=== PATIENT | male | born 1965 | race American Indian/Alaskan Native ===

== ENCOUNTER 2016-09-28 08:41 | Emergency (ER) | payer BC ==
[2016-09-28 08:54] VITALS: BMI 28.8
[2016-09-28] MEDS ORDERED: Naproxen 550 mg Tab PO STA (08:54)
[2016-09-28 08:58] VITALS: TEMP 97.9; O2SAT 97
--- NOTE | 2016-09-28 09:04 | ED PDOC ---
Arrival/HPI - General Chief Complaint: Lower Extremity Problem/Injury Time Seen by Provider: 09/28/16 08:49 Historian: Patient - History of Present Illness Narrative History of Present Illness (Text): 09/28/16 09:01 Dipika Will, a 51 year old male presents to the emergency department complaining of bilateral leg pain since a week ago. Patient notes that he "pulled his leg" a week ago. pt reports he injured both his left and right leg. Patient reports ecchymosis of right leg developed today. Patient reports he had no falls. Patient denies any fevers, headache or any other complaints at this time. Time/Duration: 1 week Symptom Onset: Sudden Symptom Course: Unchanged Activities at Onset: Rest Modifying Factors (Text): none Context: Home Associated Symptoms (Text): none Past Medical History - Provider Review Nursing Documentation Reviewed: Yes - Infectious Disease Hx of Infectious Diseases: None - Tetanus Immunization Tetanus Immunization: Unknown - Psychiatric Hx Substance Use: No - Surgical History Hx Orthopedic Surgery: Yes (KNEE) - Anesthesia Hx Anesthesia: No Hx Anesthesia Reactions: No Hx Malignant Hyperthermia: No - Suicidal Assessment Feels Threatened In Home Enviroment: No Family/Social History - Physician Review Nursing Documentation Reviewed: Yes Family/Social History: No Known Family HX Smoking Status: Unknown If Ever Smoked Hx Alcohol Use: Yes Hx Substance Use: No Hx Substance Use Treatment: No Allergies/Home Meds Allergies/Adverse Reactions: Allergies No Known Allergies Allergy (Verified 09/28/13 11:19) Review of Systems - Physician Review All systems were reviewed & negative as marked: Yes - Review of Systems Constitutional: absent: Fevers Musculoskeletal: Other (bilateral leg pain) Neurological: absent: Headache Physical Exam Vital Signs Reviewed: Yes Vital Signs Temp Pulse Resp BP Pulse Ox 09/28/16 11:11 65 18 143/79 97 09/28/16 08:41 97.9 F 60 17 145/87 97 Temperature: Afebrile Blood Pressure: Normal Pulse: Regular Respiratory Rate: Normal Appearance: Positive for: Well-Appearing, Non-Toxic, Comfortable Pain Distress: None Mental Status: Positive for: Alert and Oriented X 3 - Systems Exam Head: Present: Atraumatic, Normocephalic Pupils: Present: PERRL Extroacular Muscles: Present: EOMI Conjunctiva: Present: Normal Mouth: Present: Moist Mucous Membranes Neck: Present: Normal Range of Motion Respiratory/Chest: Present: Clear to Auscultation, Good Air Exchange. No: Respiratory Distress, Accessory Muscle Use Cardiovascular: Present: Regular Rate and Rhythm, Normal S1, S2. No: Murmurs Abdomen: Present: Normal Bowel Sounds. No: Tenderness, Distention, Peritoneal Signs Upper Extremity: Present: Normal Inspection. No: Cyanosis, Edema Lower Extremity: Present: Other (ecchymosis to right upper leg; minimum tenderness) Neurological: Present: GCS=15, CN II-XII Intact, Speech Normal Skin: Present: Warm, Dry, Normal Color. No: Rashes Psychiatric: Present: Alert, Oriented x 3, Normal Insight, Normal Concentration Medical Decision Making ED Course and Treatment: 09/28/16 09:09 Impression: 51 year old male with bilateral leg pain. Differential Diagnosis include but are not limited to: Plan: -- US lower extremity vein bilat -- Anaprox -- Reassess and disposition Prior Visits: Notes and results from previous visits were reviewed. Patient reported to the emergency department on 05/01/16 for evaluation of generalized body aches. Progress Notes: 09/28/16 10:16 09/28/16 10:17 tech reports dvt study neg. 09/28/16 13:24 pt ambulating around er in nad, xr, dvt study neg, advise outpt f/u with ortho - RAD Interpretation Radiology Orders: 09/28/16 08:53 DUPLEX LOWER EXTRM VEIN BILAT [US] Stat 09/28/16 09:01 Femur Right [FEMUR MIN 2 VIEWS RT] [RAD] Stat HIP MIN 4V W/ PELVIS RT [RAD] Stat - Medication Orders Current Medication Orders: Discontinued Medications Naproxen (Anaprox Ds) 550 mg PO STAT STA Stop: 09/28/16 08:55 Last Admin: 09/28/16 09:06 Dose: 550 MG - Scribe Statement The provider has reviewed the documentation as recorded by the Laraibdiamond Nielson All medical record entries made by the Laraibdiamond were at my direction and personally dictated by me. I have reviewed the chart and agree that the record accurately reflects my personal performance of the history, physical exam, medical decision making, and the department course for this patient. I have also personally directed, reviewed, and agree with the discharge instructions and disposition. Disposition/Present on Arrival - Present on Arrival Any Indicators Present on Arrival: No History of DVT/PE: No History of Uncontrolled Diabetes: No Urinary Catheter: No History of Decub. Ulcer: No History Surgical Site Infection Following: None - Disposition Have Diagnosis and Disposition been Completed?: Yes Diagnosis: Traumatic ecchymosis of lower leg Disposition: HOME/ ROUTINE Disposition Time: 10:20 Condition: STABLE Discharge Instructions (ExitCare): Contusion in Adults (ED), Leg Sprain (ED) Additional Instructions: please follow up with specialist. return to er with worsening symptoms or concerns. Prescriptions: Naproxen 500 mg PO BID PRN #14 tab PRN Reason: Pain, Mild (1-3) Referrals: PCP,NO [Primary Care Provider] - Follow up with primary Reg Malloy DO [Staff Provider] - Follow up with primary
[2016-09-28 11:11] VITALS: BP 143/79; PULSE 65; RESP 18
--- NOTE | 2016-09-28 12:06 | RAD ---
PROCEDURE: Right femur dated 09/28/2016. HISTORY: trauma COMPARISON: Correlation made with concurrent radiographs right hip. TECHNIQUE: AP and lateral views of the right femur performed and compared with concurrent radiographs of the pelvis and right hip. FINDINGS: No evidence of acute displaced fracture nor dislocation. The osseous structures appear intact. No cortical destructive changes are identified. Soft tissues unremarkable. IMPRESSION: No acute fracture seen.
--- NOTE | 2016-09-28 13:30 | RAD ---
PROCEDURE: Pelvis right hip dated 09/28/2016. HISTORY: trauma COMPARISON: Comparison made with concurrent radiographs of the right femur. . Harish TECHNIQUE: Frontal view of the pelvis and frontal/frogleg lateral views of the right hip performed. FINDINGS: The current study reveals no evidence of acute displaced fracture nor dislocation. The osseous structures appear intact. Both femoral heads are appropriately located within the respective acetabula. Joint spaces preserved. No significant osteoarthritis. IMPRESSION: No acute fractures. If symptoms persist or occult fracture suspected clinically, consider followup additional imaging such as CT scan or MRI.
--- NOTE | 2016-09-29 08:43 | US ---
HISTORY: Leg pain and swelling. Evaluate for DVT PHYSICIAN(S): Phu Infante MD. TECHNIQUE: Duplex sonography and color-flow Doppler with graded compression were used to evaluate the deep venous systems of both lower extremities. FINDINGS: The visualized deep venous systems of both lower extremities are sonographically normal and compressible. Normal wave forms and augmentation are seen. There is no sonographic evidence for deep venous thrombosis in the visualized segments of both lower extremities. IMPRESSION: No sonographic evidence for deep venous thrombosis in the visualized segments of both lower extremities.
== END 2016-09-28 12:10 | disposition home or self-care (01) ==
LOC: ED 08:41
DX: S70.11XA Contusion of right thigh, initial encounter (principal); X58.XXXA Exposure to other specified factors, initial encounter; Y92.009 Unspecified place in unspecified non-institutional (private) residence as the place of occurrence of the external cause

== ENCOUNTER 2017-05-26 09:46 | Emergency (ER) | payer BC ==
[2017-05-26 09:46] VITALS: BMI 29.1
[2017-05-26 10:02] VITALS: BP 125/75; PULSE 65; RESP 18; TEMP 97.8; O2SAT 98
--- NOTE | 2017-05-26 10:21 | ED PDOC ---
Arrival/HPI - General Chief Complaint: Flu-like Symptoms Time Seen by Provider: 05/26/17 10:02 Historian: Patient - History of Present Illness Time/Duration: Other (4 days) Symptom Onset: Gradual Symptom Course: Unchanged Severity Level: Mild Associated Symptoms (Text): 05/26/17 10:18 Patient complains of approximately a four-day history of cough congestion and URI. No sputum production. No dyspnea. No wheezing. No fever or chills. His has a similar illness for the last several weeks. No chest pain. Past Medical History - Infectious Disease Hx of Infectious Diseases: None - Tetanus Immunization Tetanus Immunization: Unknown - Psychiatric Hx Depression: No Hx Emotional Abuse: No Hx Physical Abuse: No Hx Substance Use: No - Surgical History Hx Orthopedic Surgery: Yes (KNEE) - Anesthesia Hx Anesthesia: No Hx Anesthesia Reactions: No Hx Malignant Hyperthermia: No - Suicidal Assessment Feels Threatened In Home Enviroment: No Family/Social History - Physician Review Nursing Documentation Reviewed: Yes Family/Social History: Unknown Family HX Smoking Status: cigar ana Hx Alcohol Use: Yes Frequency of alcohol use: Socially Hx Substance Use: No Hx Substance Use Treatment: No Allergies/Home Meds Allergies/Adverse Reactions: Allergies No Known Allergies Allergy (Verified 05/26/17 10:02) Review of Systems - Physician Review All systems were reviewed & negative as marked: Yes Physical Exam Vital Signs Temp Pulse Resp BP Pulse Ox 05/26/17 09:58 97.8 F 65 18 125/75 98 Temperature: Afebrile Blood Pressure: Normal Pulse: Regular Respiratory Rate: Normal Appearance: Positive for: Well-Appearing, Non-Toxic, Comfortable Pain Distress: None Mental Status: Positive for: Alert and Oriented X 3 - Systems Exam Head: Present: Atraumatic, Normocephalic Pupils: Present: PERRL Extroacular Muscles: Present: EOMI Conjunctiva: Present: Normal Ears: Present: NORMAL TM. No: Erythema, Normal Canal (left cerumen), TM Bulging Mouth: Present: Moist Mucous Membranes Pharnyx: No: ERYTHEMA, EXUDATE, TONSILS ENLARGED Neck: Present: Normal Range of Motion Respiratory/Chest: Present: Clear to Auscultation, Good Air Exchange. No: Respiratory Distress, Accessory Muscle Use Cardiovascular: Present: Regular Rate and Rhythm, Normal S1, S2. No: Murmurs Skin: Present: Warm, Dry, Normal Color. No: Rashes Disposition/Present on Arrival - Present on Arrival Any Indicators Present on Arrival: No History of DVT/PE: No History of Uncontrolled Diabetes: No Urinary Catheter: No History of Decub. Ulcer: No History Surgical Site Infection Following: None - Disposition Have Diagnosis and Disposition been Completed?: Yes Diagnosis: Bronchitis Disposition: HOME/ ROUTINE Disposition Time: 10:20 Patient Plan: Discharge Condition: GOOD Discharge Instructions (ExitCare): Acute Bronchitis (ED) Additional Instructions: Symptomatic treatment. Tylenol or Advil as directed on bottle as needed. Prescriptions: Benzonatate [Tessalon Perles] 100 mg PO Q8 #30 sgl Azithromycin [Zithromax] 250 mg PO DAILY #6 tab Forms: [facility] (Lao), WORK NOTE
== END 2017-05-26 10:31 | disposition home or self-care (01) ==
LOC: ED 09:46
DX: J40 Bronchitis, not specified as acute or chronic (principal)

== ENCOUNTER 2017-08-10 07:20 | Emergency (ER) | payer BC ==
[2017-08-10 07:20] VITALS: BMI 29.1
[2017-08-10 07:32] VITALS: RESP 18; TEMP 98.2; O2SAT 99
--- NOTE | 2017-08-10 07:49 | ED PDOC ---
Arrival/HPI - General Chief Complaint: Bite - History of Present Illness Narrative History of Present Illness (Text): 08/10/17 07:45 Pt is a 52 yo M with no significant PMH presents to ED with bug bite on back of his neck. Pt states that about one year ago he was bit on the back of his neck while outside chopping wood. At that time, patient had minimal symptoms and did not seek medical advice. However, over the last year the bite area became more indurated, pruritic, and tender. Pt attempted to drain bite, but was unable to. Pt denied CP, SOB, n/v, abdominal pain, fatigue, rashes, fever, chills, arthralgias, myalgias, WALL, or dizziness. PMD: None Past Medical History - Provider Review Nursing Documentation Reviewed: Yes - Infectious Disease Hx of Infectious Diseases: None - Tetanus Immunization Tetanus Immunization: Unknown - Psychiatric Hx Depression: No Hx Emotional Abuse: No Hx Physical Abuse: No Hx Substance Use: No - Surgical History Hx Orthopedic Surgery: Yes (KNEE) - Anesthesia Hx Anesthesia: No Hx Anesthesia Reactions: No Hx Malignant Hyperthermia: No - Suicidal Assessment Feels Threatened In Home Enviroment: No Family/Social History - Physician Review Nursing Documentation Reviewed: Yes Family/Social History: No Known Family HX Smoking Status: Unknown If Ever Smoked Hx Alcohol Use: Yes Hx Substance Use: No Hx Substance Use Treatment: No Allergies/Home Meds Allergies/Adverse Reactions: Allergies No Known Allergies Allergy (Verified 05/26/17 10:02) Review of Systems - Physician Review All systems were reviewed & negative as marked: Yes - Review of Systems Constitutional: Normal Eyes: Normal ENT: Normal Respiratory: Normal Gastrointestinal: Normal Genitourinary Male: Normal Musculoskeletal: Normal Skin: Other (Indurated area on back of neck) Neurological: Normal Endocrine: Normal Hemo/Lymphatic: Normal Psychiatric: Normal Physical Exam Vital Signs Reviewed: Yes Vital Signs Temp Pulse Resp BP Pulse Ox 08/10/17 07:27 98.2 F 71 18 138/100 H 99 Temperature: Afebrile Blood Pressure: Normal Pulse: Regular Respiratory Rate: Normal Appearance: Positive for: Well-Appearing Pain Distress: Mild Mental Status: Positive for: Alert and Oriented X 3 - Systems Exam Head: Present: Atraumatic, Normocephalic Extroacular Muscles: Present: EOMI Mouth: Present: Moist Mucous Membranes Nose (External): Present: Atraumatic Nose (Internal): Present: Normal Inspection Neck: Present: Normal Range of Motion, Other (1.5 cm, midline, indurated, mobile mass on posterior neck near c4-5). No: Meningeal Signs, JVD, Lymphadenopathy Respiratory/Chest: Present: Clear to Auscultation. No: Respiratory Distress Cardiovascular: Present: Regular Rate and Rhythm, Normal S1, S2. No: Murmurs Abdomen: Present: Normal Bowel Sounds. No: Tenderness, Distention, Peritoneal Signs Back: Present: Normal Inspection Upper Extremity: Present: Normal Inspection Lower Extremity: Present: Normal Inspection Neurological: Present: GCS=15, CN II-XII Intact Skin: Present: Warm, Dry, Normal Color, Induration (posterior neck) Psychiatric: Present: Alert, Oriented x 3 Medical Decision Making ED Course and Treatment: 08/10/17 07:52 Assessment: 52 yo M presents with 1.5 cm indurated, mobile mass on posterior neck. Plan: - Soft tissue cervical US 08/10/17 09:11 Soft tissue cervical US showed 1.4x1.2x1.1 cm subcutaneous hypoechoic lesion may represent enlarged lymph node versus infected sebaceous cyst. Results discussed with patient. Recommend PO antibiotics and outpatient follow up with general surgery. - RAD Interpretation Radiology Orders: 08/10/17 07:43 NECK/HEAD SOFT TISSUE [US] Stat Disposition/Present on Arrival - Present on Arrival Any Indicators Present on Arrival: No History of DVT/PE: No History of Uncontrolled Diabetes: No Urinary Catheter: No History of Decub. Ulcer: No History Surgical Site Infection Following: None - Disposition Have Diagnosis and Disposition been Completed?: Yes Diagnosis: Sebaceous cyst Disposition: HOME/ ROUTINE Disposition Time: 09:13 Patient Plan: Discharge Patient Problems: Current Active Problems Problem Status Onset Sebaceous cyst Acute Condition: GOOD Discharge Instructions (ExitCare): Epidermal Cyst (DC) Additional Instructions: 1. Apply warm compresses to area for no more than 15-20 minutes at a time 2. Complete course of antibiotics 3. May use [id number] ibuprofen for pain as needed; take with food 4. Follow up with general surgery within one week 5. Return to ED if symptoms worsen (Increased drainage, pain, redness) Prescriptions: Cephalexin [Keflex] 500 mg PO BID #14 capsule Referrals: Seema Sheikh, [Primary Care Provider] - Follow up with primary Herber,Stoney B, MD [Medical Doctor] - Follow up with primary Forms: [employer] (Djiboutian)
--- NOTE | 2017-08-10 09:04 | US ---
PROCEDURE: Ultrasound examination of the neck soft tissue HISTORY: Posterior neck cyst? COMPARISON: No prior similar study available for comparison. TECHNIQUE: Limited ultrasound examination of the palpable lump in the back of the neck was performed. FINDINGS: This study demonstrate subcutaneous 1.4 x 1.2 x 1.1 centimeter heterogeneous hypoechoic lesion in the posterior aspect of the neck. There is mild hyperemia and prominent vessels around the lesion. The differential consideration includes enlarged lymph node versus infected sebaceous cyst. IMPRESSION: 1.4 x 1.2 x 1.1 centimeter subcutaneous hypoechoic lesion may represent enlarged lymph node versus infected sebaceous cyst. Follow-up exam may be obtained if clinically warranted.
[2017-08-10 09:37] VITALS: BP 135/90; PULSE 85
== END 2017-08-10 09:32 | disposition home or self-care (01) ==
LOC: ED 07:20
DX: L72.3 Sebaceous cyst (principal)